=== PATIENT | male | born 1965 | race Asian ===

== ENCOUNTER 2018-05-05 14:59 | Emergency (ER) | payer OTHER ==
[~2018-05-05] VITALS: Ht 167.6 cm; Wt 72.6 kg
[2018-05-05] MEDS ORDERED: PIPERACILLIN-TAZOB 3.375GM 100 ML IV ONE (16:15)
[2018-05-05 16:27] LABS: Basophils # (auto) 0.1 uL; Basophils % (auto) 0.7 % (0.0-2.0); Eosinophils # (auto) 0.1 uL; Hematocrit 37.2 % (41.0-53.0); Hemoglobin 12.5 g/dL (13.5-17.5); Lymphocytes # (auto) 1.5 uL; Lymphocytes % (auto) 11.1 % (10.0-50.0); Mean Corpuscular Hemoglobin 32.1 pg (28.0-32.0); Mean Corpuscular Hgb Conc. 33.7 g/dL (32.0-36.0); Mean Corpuscular Volume 95.1 fL (80.0-100.0); Monocytes % (auto) 7.5 % (0.0-12.0); Neutrophils # (auto) 10.9 uL; Neutrophils % (auto) 79.7 % (37.0-80.0); Nucleated Red Blood Cells % 0.1 %; Platelet Count (auto) 361 10^3/uL (140-450); Red Blood Cells 3.91 10^6/uL (4.5-5.90); Red Cell Distribution Width 14.5 % (11.8-14.3); White Blood Cell 13.6 10^3/uL (4.4-10.8)
[2018-05-05 16:34] LABS: Albumin 3.8 g/dL (3.4-5.0); BUN/Creatinine Ratio 5.2; Calcium 10.6 mg/dL (8.5-10.1); Potassium 5.5 mmol/L (3.5-5.1)
[2018-05-05 16:37] LABS: Bilirubin, Total 0.7 mg/dL (0.2-1.0); Total Protein 9.3 g/dL (6.4-8.2)
[2018-05-05] MEDS ORDERED: cloNIDine HCL 0.1 MG TAB PO ONE (17:00)
[2018-05-05] MEDS ORDERED: ALBUTEROL SULF 2.5 MG/0.5ML(0.5%) NEB SOLN NEB STA (17:48)
[2018-05-05] MEDS ORDERED: SODIUM POLYSTYRENE SULF 15 GM POWDER PO ONE (18:00)
[2018-05-05] MEDS ORDERED: InsuLIN REG 1unit/0.01ml Soln (100units/ml) IV ONE (18:00)
[2018-05-05] MEDS ORDERED: SODIUM BICARBONATE 8.4% INJ 50ML SYRINGE IV ONE (18:00)
[2018-05-05] MEDS ORDERED: DEXTROSE (50%) 50ML SYRG IV ONE (18:00)
[2018-05-05] MEDS ORDERED: amLODIPine BESYLATE 5 MG TAB PO ONE (18:00)
[2018-05-05] MEDS ORDERED: CALCIUM GLUC 4.65meq/50ml D5AE 50 ML IV ONE (18:00)
[2018-05-05] MEDS ORDERED: ONDANSETRON HCL 4 MG/2 ML VIAL IV ONE (19:45)
[2018-05-05] MEDS ORDERED: ACETAMINOPHEN 500 MG TAB PO ONE (19:45)
[2018-05-05] MEDS ORDERED: MORPHINE SULFATE 4 MG/ML SYR/VIAL IV ONE ×2 (19:45→20:30)
[2018-05-05 20:15] VITALS: BP 99/61
== END 2018-05-05 21:41 ==
LOC: ER 15:11
DX: L97.519 Non-pressure chronic ulcer of other part of right foot with unspecified severity (principal); E87.6 Hypokalemia; E10.10 Type 1 diabetes mellitus with ketoacidosis without coma; I12.0 Hypertensive chronic kidney disease with stage 5 chronic kidney disease or end stage renal disease; E10.22 Type 1 diabetes mellitus with diabetic chronic kidney disease; N18.6 End stage renal disease; E78.5 Hyperlipidemia, unspecified
CPT/HCPCS: 36415; 73700; 80053; 82010; 82962; 83605; 85025; 87040; 94640; 96365; 96366; 96368; 96375; 99285; J0610; J1815; J2270; J2405; J2543; J7042; J7611

== ENCOUNTER 2018-07-12 04:56 | Observation (INO) | payer OTHER ==
[~2018-07-12] VITALS: Ht 167.6 cm; Wt 73.5 kg
[2018-07-12] MEDS ORDERED: DEXTROSE 50% SYRINGE 0 ML IV ONE (05:45)
[2018-07-12] MEDS ORDERED: DEXTROSE 50% SYRINGE 50 ML IV ONE (05:46)
[2018-07-12] MEDS ORDERED: DEXTROSE (50%) 50ML SYRG IV ONE (06:00)
[2018-07-12] MEDS ORDERED: hydrALAZINE HCL 20 MG/ML VL ONE (06:08)
[2018-07-12] MEDS ORDERED: hydrALAZINE HCL 20 MG/ML VL IV ONE ×2 (06:15→09:30)
[2018-07-12 06:18] LABS: Potassium 4.1 mmol/L (3.5-5.1)
[2018-07-12 06:23] LABS: Basophils # (auto) 0.1 uL; Eosinophils # (auto) 0.3 uL; Eosinophils % (auto) 4.3 % (0.0-7.0); Hematocrit 33.4 % (41.0-53.0); Hemoglobin 11.4 g/dL (13.5-17.5); Lymphocytes # (auto) 0.9 uL; Lymphocytes % (auto) 14.4 % (10.0-50.0); Mean Corpuscular Hemoglobin 31.7 pg (28.0-32.0); Mean Corpuscular Hgb Conc. 34.3 g/dL (32.0-36.0); Mean Corpuscular Volume 92.5 fL (80.0-100.0); Monocytes # (auto) 0.4 uL; Monocytes % (auto) 7.4 % (0.0-12.0); Neutrophils # (auto) 4.4 uL; Neutrophils % (auto) 72.9 % (37.0-80.0); Platelet Count (auto) 213 10^3/uL (140-450); Red Blood Cells 3.61 10^6/uL (4.5-5.90); Red Cell Distribution Width 15.3 % (11.8-14.3)
[2018-07-12 06:26] LABS: Albumin 3.5 g/dL (3.4-5.0); BUN/Creatinine Ratio 5.7; Bilirubin, Total 0.4 mg/dL (0.2-1.0); Calcium 9.6 mg/dL (8.5-10.1); Magnesium 3.2 mg/dL (1.6-2.6); Total Protein 7.4 g/dL (6.4-8.2)
[2018-07-12] MEDS ORDERED: SODIUM CHLORIDE 0.9% 1,000 ML IV ONE (07:24)
[2018-07-12] MEDS ORDERED: cloNIDine HCL 0.1 MG TAB PO ONE (09:30)
[2018-07-12] MEDS ORDERED: ONDANSETRON HCL 4 MG/2 ML VIAL IV PRN (13:30)
[2018-07-12] MEDS ORDERED: ACETAMINOPHEN 500 MG TAB PO PRN (13:30)
[2018-07-12] MEDS ORDERED: hydrALAZINE HCL 20 MG/ML VL IV PRN (13:30)
[2018-07-12] MEDS ORDERED: MORPHINE SULFATE 4 MG/ML SYR/VIAL IV PRN (13:30)
[2018-07-12] MEDS ORDERED: HYDROcodone-ACET 5/325MG TAB PO PRN (13:30)
[2018-07-12] MEDS ORDERED: NITROGLYCERIN 0.4 MG SL TAB SL PRN (13:30)
[2018-07-12] MEDS ORDERED: hydrALAZINE HCL 10 MG TAB PO ONE (13:30)
[2018-07-12] MEDS ORDERED: DEXTROSE (50%) 50ML SYRG IV PRN (13:30)
[2018-07-12] MEDS: InsuLIN REG 1unit/0.01ml Soln (100units/ml) SC SCH ×2 (17:00→22:00)
[2018-07-12] MEDS: ACCU-CHEK COMFORT CURVE STRIP VI SCH ×2 (17:46→22:16)
[2018-07-12 17:47] VITALS: BP 210/97
[2018-07-12] MEDS: MORPHINE SULF INJ 2 MG/ML SYRINGE 1ML IV PRN ×2 (18:10→22:18)
[2018-07-12 18:39] VITALS: BP 210/97
[2018-07-12 22:00] VITALS: BP 145/81
[2018-07-12] MEDS ORDERED: GABAPENTIN 300 MG CAP PO SCH (22:00)
[2018-07-12] MEDS: METOPROLOL TARTRATE 50 MG TAB PO SCH (22:00)
[2018-07-13 04:38] VITALS: BP 135/85
[2018-07-13] MEDS: InsuLIN REG 1unit/0.01ml Soln (100units/ml) SC SCH ×3 (06:22→16:26)
[2018-07-13] MEDS: ACCU-CHEK COMFORT CURVE STRIP VI SCH ×3 (06:22→16:26)
[2018-07-13 06:27] LABS: Calcium 8.8 mg/dL (8.5-10.1)
[2018-07-13 06:28] LABS: Basophils # (auto) 0.1 uL; Basophils % (auto) 1.1 % (0.0-2.0); Eosinophils # (auto) 0.4 uL; Eosinophils % (auto) 6.7 % (0.0-7.0); Hematocrit 29.5 % (41.0-53.0); Hemoglobin 10.2 g/dL (13.5-17.5); Lymphocytes # (auto) 1.2 uL; Lymphocytes % (auto) 22.4 % (10.0-50.0); Mean Corpuscular Hemoglobin 32.3 pg (28.0-32.0); Mean Corpuscular Hgb Conc. 34.5 g/dL (32.0-36.0); Mean Corpuscular Volume 93.5 fL (80.0-100.0); Monocytes # (auto) 0.6 uL; Monocytes % (auto) 10.3 % (0.0-12.0); Neutrophils # (auto) 3.3 uL; Neutrophils % (auto) 59.5 % (37.0-80.0); Nucleated Red Blood Cells % 0.1 %; Platelet Count (auto) 169 10^3/uL (140-450); Red Blood Cells 3.15 10^6/uL (4.5-5.90); Red Cell Distribution Width 15.8 % (11.8-14.3); White Blood Cell 5.5 10^3/uL (4.4-10.8)
[2018-07-13 06:30] LABS: BUN/Creatinine Ratio 4.8; Phosphorus 5.1 mg/dL (2.5-4.90)
[2018-07-13 09:00] VITALS: BP 162/66
[2018-07-13] MEDS ORDERED: PANTOPRAZOLE 40 MG TAB PO SCH (10:00)
[2018-07-13] MEDS ORDERED: LOSARTAN POTASSIUM 25 MG TAB PO SCH (10:00)
[2018-07-13] MEDS: METOPROLOL TARTRATE 50 MG TAB PO SCH (10:06)
[2018-07-13 13:00] VITALS: BP 166/78
[2018-07-13 14:44] VITALS: BP 166/78
[2018-07-13 14:58] VITALS: BP 166/78
== END 2018-07-13 16:00 | disposition home or self-care (01) | DRG 637 ==
LOC: EDBD 04:56 → ER 04:56 → TELE 13:23 → TELE-EAST 17:16
PROVIDERS: ADMIT Nurse Practitioner Acute Care; ATTEND Family Medicine
DX: E11.649 Type 2 diabetes mellitus with hypoglycemia without coma (principal); G93.41 Metabolic encephalopathy; I12.0 Hypertensive chronic kidney disease with stage 5 chronic kidney disease or end stage renal disease; G93.49 Other encephalopathy; J84.9 Interstitial pulmonary disease, unspecified; D63.8 Anemia in other chronic diseases classified elsewhere; E11.42 Type 2 diabetes mellitus with diabetic polyneuropathy; E11.21 Type 2 diabetes mellitus with diabetic nephropathy; E11.22 Type 2 diabetes mellitus with diabetic chronic kidney disease; N18.6 End stage renal disease; N17.9 Acute kidney failure, unspecified; Z91.14 Patient's other noncompliance with medication regimen; Z91.19 Patient's noncompliance with other medical treatment and regimen; Z99.2 Dependence on renal dialysis; Z82.49 Family history of ischemic heart disease and other diseases of the circulatory system; Z83.3 Family history of diabetes mellitus; Z79.4 Long term (current) use of insulin; Z79.899 Other long term (current) drug therapy
CPT/HCPCS: 36415; 71045; 80048; 80053; 80061; 82962; 83036; 83735; 84100; 84443; 84484; 85025; 93005; 96361; 96374; 96375; 96376; 99284; G0257; G0378; J0360; J2270; J7030; J7042; 90935

== ENCOUNTER 2018-07-16 02:08 | Inpatient (IN) | payer OTHER ==
[2018-07-16] VITALS (49 sets, daily range): BP systolic 76–197; BP diastolic 23–80
[~2018-07-16] VITALS: Ht 165.1 cm; Wt 60.8 kg
[2018-07-16] MEDS ORDERED: MIDAZOLAM DRIP 50 mg/50mL 50 ML IV ONE (02:12)
[2018-07-16] MEDS: MIDAZOLAM DRIP 50 mg/50mL 50 ML IV SCH (02:12)
[2018-07-16] MEDS: NOREPINEPHRINE 8 MG/250ML KIT 250 ML IV SCH (02:24)
[2018-07-16] MEDS ORDERED: NOREPINEPHRINE 8 MG/250ML KIT 250 ML IV ONE (02:24)
[2018-07-16] MEDS ORDERED: MIDAZOLAM DRIP 50 mg/50mL 50 ML IV SCH (03:01)
[2018-07-16] MEDS ORDERED: NOREPINEPHRINE 8 MG/250ML KIT 250 ML IV SCH (03:04)
[2018-07-16] MEDS ORDERED: SODIUM BICARBONATE 8.4 % INJ 50ML VIAL IV ONE ×3 (03:45→15:15)
[2018-07-16 04:01] LABS: Albumin 3.1 g/dL (3.4-5.0); BUN/Creatinine Ratio 5.3; Potassium 5.2 mmol/L (3.5-5.1)
[2018-07-16 04:04] LABS: Basophils # (auto) 0.1 uL; Basophils % (auto) 0.7 % (0.0-2.0); Eosinophils # (auto) 0.2 uL; Eosinophils % (auto) 1.8 % (0.0-7.0); Hematocrit 34.4 % (41.0-53.0); Hemoglobin 10.9 g/dL (13.5-17.5); Lymphocytes # (auto) 3.4 uL; Lymphocytes % (auto) 27.9 % (10.0-50.0); Mean Corpuscular Hemoglobin 31.6 pg (28.0-32.0); Mean Corpuscular Hgb Conc. 31.8 g/dL (32.0-36.0); Mean Corpuscular Volume 99.4 fL (80.0-100.0); Monocytes # (auto) 0.6 uL; Monocytes % (auto) 5.2 % (0.0-12.0); Neutrophils # (auto) 7.9 uL; Neutrophils % (auto) 64.4 % (37.0-80.0); Platelet Count (auto) 174 10^3/uL (140-450); Red Blood Cells 3.46 10^6/uL (4.5-5.90); Red Cell Distribution Width 15.7 % (11.8-14.3); White Blood Cell 12.2 10^3/uL (4.4-10.8)
[2018-07-16 04:05] LABS: Bilirubin, Total 0.7 mg/dL (0.2-1.0); Total Protein 7.4 g/dL (6.4-8.2)
[2018-07-16 04:06] LABS: Lactic Acid w/Reflex 11.4 mmol/L (0.4-2.0)
[2018-07-16 04:11] LABS: INR 1.1 (0.9-1.15); Partial Thromboplastin Time 29.5 sec (23.78-33.04); Prothrombin Time 11.7 sec (9.27-12.13)
[2018-07-16 04:29] LABS: Alcohol, Urine < 3.0 mg/dL (0-5); Amphetamine Screen, Urine NEGATIVE (NEGATIVE); Barbiturate Scree,Urine NEGATIVE (NEGATIVE); Benzodiazephine Screen, Urine NEGATIVE (NEGATIVE); Cannabinoid Screen, Urine NEGATIVE (NEGATIVE); Cocaine Screen, Urine NEGATIVE (NEGATIVE); Opiate Scree,Urine NEGATIVE (NEGATIVE); Phencyclidine Screen, Urine NEGATIVE (NEGATIVE)
[2018-07-16 04:30] LABS: Urine Bacteria MANY /hpf (None Seen); Urine Blood 2+ /uL (Negative); Urine Specific Gravity 1.011 (1.001-1.035); Urine Sperm PRESENT /hpf (None Seen); Urine WBC 79 /hpf (0 - 3)
[2018-07-16] MEDS ORDERED: D5W 5% 1,000 ML IV ONE (07:00)
[2018-07-16] MEDS ORDERED: DEXTROSE (50%) 50ML SYRG IV ONE (07:00)
[2018-07-16] MEDS ORDERED: cefTRIAXone 1GM/50ML D5W 50 ML IV ONE (08:00)
[2018-07-16] MEDS ORDERED: NITROGLYCERIN 0.4 MG SL TAB SL PRN (08:30)
[2018-07-16] MEDS ORDERED: MORPHINE SULFATE 4 MG/ML SYR/VIAL IV PRN (08:30)
[2018-07-16] MEDS ORDERED: VANCOMYCIN PER PHARMACY 0 MG IV SCH (08:30)
[2018-07-16] MEDS ORDERED: SODIUM BICARBONATE 8.4% INJ 50ML SYRINGE ONE (09:42)
[2018-07-16] MEDS ORDERED: PIPERACILLIN-TAZOB 0.75 GM in D5W 5% 50 ML IV SCH (10:00)
[2018-07-16] MEDS ORDERED: VANCOMYCIN 1GM/250ML 250 ML IV ONE (10:00)
[2018-07-16] MEDS: PIPERACILLIN-TAZOB 2.25GM 50 ML IV SCH ×2 (10:00→22:00)
--- NOTE | 2018-07-16 12:05 | NUR ---
STAT EEG COMPLETED AT BEDSIDE. RAJEEV WOODSON.
--- NOTE | 2018-07-16 14:00 | NUR ---
Admit to ICU from ER on vent ZACHARY ROMAN admitted to ICU via gurney on registered nurse cardiac telemetry, intubated and being bagged by Respiratory Therapist. Patient transferred to bed, connected to mechanical ventilator by therapist, JAVIER at bedside. Patient connected to ICU monitoring, weighed by bedscale, oriented to Talisha Sharp RN primary RN, unit, ventilator and sedation.
--- NOTE | 2018-07-16 14:11 | NUR ---
SILVIA Saleh at bedside talking to the patient's family member regarding the POC.
--- NOTE | 2018-07-16 14:43 | NUR ---
cell phone repair technician at bedside.
--- NOTE | 2018-07-16 14:51 | NUR ---
Dr. Allen at bedside.
--- NOTE | 2018-07-16 16:00 | NUR ---
PICC line nurse at bedside.
--- NOTE | 2018-07-16 16:03 | NUR ---
Dr. Allen, paged regarding patient's ABG results.
--- NOTE | 2018-07-16 16:28 | NUR ---
Dr. Allen, updated regarding patient's ABG results orders received. SILVIA Saleh updated regarding patient's critical troponin, no new orders received.
[2018-07-16] MEDS ORDERED: DEXTROSE (50%) 50ML SYRG IV PRN (16:30)
--- NOTE | 2018-07-16 16:55 | NUR ---
PICC line placement Patient/Patient significant other educated on need for PICC line placement. All risks and benefits explained and all questions and concerns addressed prior to procedure. Noted past medical history and allergies with no contraindications. INR and Plt counts within acceptable range. 5fr PICC line inserted via right brachial vein using [employer] US and Tip Location System. Sterile technique with maximum barrier precautions utilized. Blood return obtained from each of 3 lumens and each flushed easily with NS using proper technique. PICC secured with Stat-lock; biodisc and occlusive dressing applied. Stat portable chest x-ray obtained for PICC tip placement. *Baseline Arm Circumference 26cm. PICC lot #[id number]. internal length 46cm external length 0cm
--- NOTE | 2018-07-16 17:32 | NUR ---
Portable xray in progress at bedside.
[2018-07-16] MEDS: ACCU-CHEK COMFORT CURVE STRIP VI SCH ×2 (17:33→22:15)
[2018-07-16] MEDS: InsuLIN REG 1unit/0.01ml Soln (100units/ml) SC SCH (17:33)
--- NOTE | 2018-07-16 18:30 | NUR ---
Rectal temperature 94.5. Yomi hugger and warm blankets applied per hospital protocol.
--- NOTE | 2018-07-16 19:30 | NUR ---
INITIAL CONTACT ASSUMED CARE OF PATIENT PATIENT RECEIVED LAYING ON BED ON MECHANICAL VENTILATION HOWEVER; PATIENT IS NOT SEDATED AT THIS TIME. PATIENT DOES NOT RESPOND TO STIMULATION, PUPILS FIXED AND DILATED, NO COUGH/GAG NOTED. HOB ELEVATED TO 30 DEGREES FPR ASPIRATION PRECAUTIONS/VAP PROTOCOL. VITAL SIGNS SHOW PATIENT TEMP AT 94.[address] VENTILATOR PLUGGED INTO RED OUTLET, AMBU BAG AT BEDSIDE, ETT SECURED WITH ANCHOR-FAST WAYNE. ORAL CARE AND SUCTION PROVIDED. NOTED TRIPLE LUMEN PICC LEFT UPPER ARM INTACT AND PATENT WITH NO S/S OF INFILTRATION OR PHLEBITIS, RUNNING MULTIPLE INFUSIONS. REFER TO IV SPREADSHEET FOR TITRATION SPECIFICS. 18 G IV LEFT HAND, HEP LOCKED AT THIS TIME. F/C INTACT AND DRAINING TO GRAVITY. FLEXI SEAL INTACT AND DRAINING BROWN LIQUID STOOL. FISTULA RIGHT UPPER ARM. OG TUBE AUSCULTATED AND IN PLACE, NO RESIDUALS. SKIN INTACT. NO INDICATION OF PAIN AT THIS TIME. PATIENT IN FULL VIEW OF NURSES, SIDE RAILS UP X 2. SAFETY MAINTAINED, WILL CONTINUE TO MONITOR.
--- NOTE | 2018-07-16 19:30 | NUR ---
FAMILY LEFT THE BEDSIDE FOR THE EVENING
[2018-07-16] MEDS: SODIUM CHLOR 0.9% PF (SALINE LOCK) 10ML VIAL/SYR IV SCH (22:00)
[2018-07-16] MEDS ORDERED: InsuLIN REG 1unit/0.01ml Soln (100units/ml) SC SCH (22:00)
--- NOTE | 2018-07-16 22:59 | NUR ---
ANDREAS LOPEZ DC'Jo TEMP 98.4
[2018-07-17] VITALS (69 sets, daily range): BP systolic 77–137; BP diastolic 33–58
[2018-07-17] MEDS: MIDAZOLAM DRIP 50 mg/50mL 50 ML IV SCH (03:04)
[2018-07-17] MEDS: NOREPINEPHRINE 8 MG/250ML KIT 250 ML IV SCH ×2 (03:15→10:03)
--- NOTE | 2018-07-17 04:00 | NUR ---
Patient bathe/linen change Patient given complete bath. Skin integrity assessed for any changes. Linens changed. Patient repositioned for comfort. Oral care and suction given, all canisters and tubing replaced. Still no response from patient at this time.
[2018-07-17 04:40] LABS: Basophils # (auto) 0.1 uL; Basophils % (auto) 0.8 % (0.0-2.0); Eosinophils # (auto) 0.3 uL; Eosinophils % (auto) 2.1 % (0.0-7.0); Hemoglobin 11.5 g/dL (13.5-17.5); Lymphocytes # (auto) 1.1 uL; Mean Corpuscular Hemoglobin 31.7 pg (28.0-32.0); Mean Corpuscular Hgb Conc. 33.8 g/dL (32.0-36.0); Mean Corpuscular Volume 93.8 fL (80.0-100.0); Monocytes # (auto) 0.5 uL; Monocytes % (auto) 3.6 % (0.0-12.0); Neutrophils % (auto) 85.5 % (37.0-80.0); Platelet Count (auto) 128 10^3/uL (140-450); Red Blood Cells 3.63 10^6/uL (4.5-5.90); Red Cell Distribution Width 15.7 % (11.8-14.3)
[2018-07-17 04:58] LABS: BUN/Creatinine Ratio 5.9; Calcium 8.7 mg/dL (8.5-10.1)
[2018-07-17] MEDS: InsuLIN REG 1unit/0.01ml Soln (100units/ml) SC SCH (06:30)
[2018-07-17] MEDS: ACCU-CHEK COMFORT CURVE STRIP VI SCH (06:30)
--- NOTE | 2018-07-17 06:45 | NUR ---
HOSPITALIST PAGED CRITICAL VALUE K: 7.0
--- NOTE | 2018-07-17 07:00 | NUR ---
CALL RECEIVED FROM HOSPITALIST ORDERS GIVEN DAY SHIFT NURSE DARRELL MADE AWARE OF K AND ORDERS
--- NOTE | 2018-07-17 07:30 | NUR ---
Opening Shift Note: Report received from RAJEEV Castrejon. Assumed care of patient, patient unresponsive, pupils fixed and no cough/gag. No S/S of distress/SOB or pain. Insructed on POC, will continue to monitor for changes Q1hr and PRN. See Px assessment.
[2018-07-17] MEDS ORDERED: ALBUTEROL SULF 2.5 MG/0.5ML(0.5%) NEB SOLN NEB STA (08:24)
[2018-07-17] MEDS ORDERED: CALCIUM GLUC 4.65meq/50ml D5AE 50 ML IV ONE ×2 (08:30)
[2018-07-17] MEDS ORDERED: InsuLIN REG 1unit/0.01ml Soln (100units/ml) IV ONE (08:30)
[2018-07-17] MEDS ORDERED: SODIUM BICARBONATE 8.4 % INJ 50ML VIAL IV ONE (08:30)
[2018-07-17] MEDS ORDERED: SODIUM POLYSTYRENE SULF 15GM/60ml SUSP or POWDER PO ONE (08:30)
[2018-07-17] MEDS ORDERED: DEXTROSE (50%) 50ML SYRG IV ONE ×2 (08:30→08:50)
[2018-07-17] MEDS ORDERED: InsuLIN REG 1unit/0.01ml Soln (100units/ml) SC ONE (08:50)
[2018-07-17] MEDS ORDERED: SODIUM BICARBONATE 8.4% INJ 50ML SYRINGE IV ONE (08:50)
--- NOTE | 2018-07-17 09:05 | NUR ---
Dr. Jovel at bedside spoke to - aware of CT head results and EEG results- poor prognosis. Due to poor prognosis -no dialysis, plan is to terminal wean today per Dr. Jovel.
--- NOTE | 2018-07-17 09:30 | NUR ---
Dr. Allen at bedside- tube high RT to place ett lower. Dr. Allen aware of terminal wean.
[2018-07-17] MEDS: SODIUM CHLOR 0.9% PF (SALINE LOCK) 10ML VIAL/SYR IV SCH (10:00)
[2018-07-17] MEDS: PIPERACILLIN-TAZOB 2.25GM 50 ML IV SCH (10:03)
--- NOTE | 2018-07-17 10:10 | NUR ---
Dr. Rob at bedside- aware of terminal wean (had spoken to earlier).
--- NOTE | 2018-07-17 10:13 | NUR ---
calling family to gather for patient- comfort cart called and to call her own grant coordinator.
[2018-07-17] MEDS ORDERED: MORPHINE SULFATE 4 MG/ML SYR/VIAL IV PRN (14:00)
[2018-07-17] MEDS ORDERED: LORazepam 2MG/ML-1ML VIAL IV PRN (14:00)
--- NOTE | 2018-07-17 14:20 | NUR ---
All family at bedside - terminally extubated patient at 1420pm.
--- NOTE | 2018-07-17 14:20 | NUR ---
Respiratory note: TERMINALLY EXTUBATED PT WITH RN, FAMILY AT BEDSIDE.
--- NOTE | 2018-07-17 18:30 | NUR ---
Spoke with [employer] and ETA is within the Hour.
== END 2018-07-17 14:23 | disposition expired | DRG 208 ==
LOC: EDBD 02:08 → ER 02:08 → TELE 08:41 → ICU WEST 12:52
PROVIDERS: ADMIT Nurse Practitioner Acute Care; ATTEND Internal Medicine
PROC: 5A1945Z Respiratory Ventilation, 24-96 Consecutive Hours (ICD-10-PCS; principal; 2018-07-16)
PROC: 0BH17EZ Insertion of Endotracheal Airway into Trachea, Via Natural or Artificial Opening (ICD-10-PCS; 2018-07-16)
PROC: 0BH17EZ Insertion of Endotracheal Airway into Trachea, Via Natural or Artificial Opening (ICD-10-PCS; 2018-07-16)
PROC: 5A12012 Performance of Cardiac Output, Single, Manual (ICD-10-PCS; 2018-07-16)
PROC: 5A1935Z Respiratory Ventilation, Less than 24 Consecutive Hours (ICD-10-PCS; 2018-07-16)
PROC: 05HY33Z Insertion of Infusion Device into Upper Vein, Percutaneous Approach (ICD-10-PCS; 2018-07-16)
DX: J96.00 Acute respiratory failure, unspecified whether with hypoxia or hypercapnia (principal); N18.6 End stage renal disease; G93.6 Cerebral edema; E44.0 Moderate protein-calorie malnutrition; G93.1 Anoxic brain damage, not elsewhere classified; N39.0 Urinary tract infection, site not specified; I13.11 Hypertensive heart and chronic kidney disease without heart failure, with stage 5 chronic kidney disease, or end stage renal disease; E87.2 Acidosis; E78.5 Hyperlipidemia, unspecified; E87.5 Hyperkalemia; E87.6 Hypokalemia; I46.9 Cardiac arrest, cause unspecified; F17.200 Nicotine dependence, unspecified, uncomplicated; Z66 Do not resuscitate; E11.40 Type 2 diabetes mellitus with diabetic neuropathy, unspecified; E11.22 Type 2 diabetes mellitus with diabetic chronic kidney disease; E11.319 Type 2 diabetes mellitus with unspecified diabetic retinopathy without macular edema; E11.649 Type 2 diabetes mellitus with hypoglycemia without coma; E11.51 Type 2 diabetes mellitus with diabetic peripheral angiopathy without gangrene; R00.0 Tachycardia, unspecified; Z79.4 Long term (current) use of insulin; Z82.49 Family history of ischemic heart disease and other diseases of the circulatory system; Z83.3 Family history of diabetes mellitus; Z91.14 Patient's other noncompliance with medication regimen; Z91.19 Patient's noncompliance with other medical treatment and regimen; Z99.2 Dependence on renal dialysis; Z89.429 Acquired absence of other toe(s), unspecified side
CPT/HCPCS: 36415; 36569; 36600; 51702; 70450; 71045; 80048; 80053; 80202; 80307; 81001; 82805; 82962; 83605; 83880; 84484; 85025; 85610; 85730; 87040; 87045; 87070; 87081; 87205; 87493; 87899; 93005; 93306; 94002; 94003; 95819; 96365; 96367; 96375; A6257; G0378; J0696; J1815; J2250; J2543; J7042